=== PATIENT | male | born 1990 | race Hispanic/Latino ===

== ENCOUNTER 2023-01-23 13:10 | Emergency (ER) | payer SELFPAY ==
[2023-01-23] MEDS ORDERED: Acetaminophen 500 MG TAB ONE (13:30)
[2023-01-23 14:31] LABS: SARS-CoV-2 NAA Rapid Test DETECTED (NotDetected)
== END 2023-01-23 13:56 | disposition home or self-care (01) ==
LOC: BURERS 13:10
DX: U07.1 COVID-19 (principal)
CPT/HCPCS: 99283